=== PATIENT | male | born 1980 | race Two or more races ===

== ENCOUNTER 2024-07-19 19:06 | Emergency (ER) | payer MEDICAID, SELFPAY ==
[2024-07-19 19:07] VITALS: BMI 25.0
[2024-07-19 19:33] VITALS: BP 120/81; PULSE 79; RESP 18; TEMP 37.1; O2SAT 96
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
[2024-07-19] MEDS: KETOROLAC INJ 60 MG/2 ML VIAL 30 MG IM (20:00)
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
[2024-07-19 20:20] LABS: Collection Type, Urine Voided; Squamous Epithelial Cell,Urine 0 /hpf (0-5)
[2024-07-19 20:27] LABS: Bacteria,Urine Rare; Bilirubin,Urine Negative (Negative); Blood,Urine Negative (Negative); Clarity,Urine Clear (Clear/Hazy); Color,Urine Lt-Yellow (Lt Yel-Yel); Glucose, Urine Negative (Negative); Ketones,Urine Negative (Negative); Leukocyte Esterase,Urine Negative (Negative); Nitrite,Urine Negative (Negative); Protein,Urine Trace (Neg - Trace); RBC,Urine 2 /hpf (0-3); Specific Gravity,Urine 1.032 (1.001-1.035); Urobilinogen,Urine Negative mg/dL (0.0-1.0); WBC,Urine 1 /hpf (0-5)
[2024-07-19 21:17] LABS: Basophils # (Auto) 0.1 Thou/mm3 (0.0-0.2); Basophils % (Auto) 1 % (0-2.5); Eosinophils # (Auto) 0.1 Thou/mm3 (0.0-0.5); Eosinophils % (Auto) 2 % (0-10); Hematocrit 42.9 % (41.0-53.0); Hemoglobin 14.8 g/dL (13.5-16.0); Immature Granulocytes % (Auto) 0 % (0-0); Immature Granulocytes Auto 0.02 Thou/mm3 (0.00-0.00); Lymphocytes # (Auto) 2.3 Thou/mm3 (1.0-4.8); Lymphocytes % (Auto) 28 % (10-50); Mean Corpuscular HGB Conc 34.5 g/dl (31.0-37.0); Mean Corpuscular Hemoglobin 29.7 pg (25.0-35.0); Mean Corpuscular Volume 86 fL (80-100); Monocytes # (Auto) 0.7 Thou/mm3 (0.0-0.8); Monocytes % (Auto) 8 % (0-12); Neutrophils % (Auto) 62 % (37-80); Nucleated Red Blood Cell % 0 /100 WBC (0); Platelet Count 267 Thou/mm3 (140-440); RDW Standard Deviation 39.1 fL (35.1-43.9); Red Blood Count 4.99 Miln/mm3 (4.50-5.90); White Blood Count 8.2 Thou/mm3 (3.8-10.6)
[2024-07-19 21:36] LABS: Alanine Aminotransferase 21 U/L (10-49); Albumin, Serum 4.7 gm/dL (3.5-5.0); Albumin/Globulin Ratio 1.7 (1.2-2.2); Alkaline Phosphatase 91 U/L (46-116); Anion Gap 9 (7-16); Aspartate Amino Transferase 22 U/L (0-34); BUN/Creatinine Ratio 23 Ratio (12-20); Bilirubin,Total 0.6 mg/dL (0.3-1.2); Blood Urea Nitrogen 21 mg/dL (9-23); Calcium 9.9 mg/dL (8.3-10.6); Calcium (Corrected) 9.9 mg/dL (8.5-10.1); Carbon Dioxide 25.3 mMol/L (20.0-31.0); Chloride 108 mMol/L (98-107); Creatinine (Component) 0.9 mg/dL (0.6-1.3); Estimated Creatinine Clearance 103.4 mL/min (>60); Globulin 2.7 gm/dL (2.3-3.5); Glucose 92 mg/dL (74-106); Osmolality,Calculated 286 (275-295); Potassium 3.7 mMol/L (3.4-5.1); Sodium 142 mMol/L (136-145); Total Protein 7.4 gm/dL (5.7-8.2); eGFR > 60 See Note
[2024-07-19 21:42] LABS: Partial Thromboplastin Time 27.7 Seconds (22.0-36.0); Prothrombin Time 10.9 Seconds (9.0-12.2)
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
[2024-07-20 02:59] VITALS: BP 117/76; PULSE 57; RESP 16; TEMP 36.9; O2SAT 95
[2024-07-20] MEDS: MORPHINE SULF INJ 10 MG/ML VIAL 4 MG IVP (03:07)
[2024-07-20] MEDS: ONDANSETRON INJ 2 MG/ML INJ 2 ML 4 MG IV (03:07)
[2024-07-20 04:12] VITALS: BP 118/85; PULSE 60; RESP 17; TEMP 36.8; O2SAT 96
[2024-07-20 06:05] VITALS: BP 105/79; PULSE 57; RESP 18; TEMP 36.7; O2SAT 96
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
[2024-07-20 08:42] VITALS: BP 101/79; PULSE 59; RESP 18; TEMP 36.8; O2SAT 96
[2024-07-20 10:23] VITALS: BP 99/73; PULSE 55; RESP 17; TEMP 36.9; O2SAT 96
== END 2024-07-20 12:09 | disposition home or self-care (01) ==
PROVIDERS: Emergency Medicine; Emergency Provider Emergency Medicine; PCP Family Medicine
DX: S19.9XXA Unspecified injury of neck, initial encounter (principal); S29.9XXA Unspecified injury of thorax, initial encounter; M51.370 Other intervertebral disc degeneration, lumbosacral region with discogenic back pain only; M51.27 Other intervertebral disc displacement, lumbosacral region; G95.29 Other cord compression; V89.9XXA Person injured in unspecified vehicle accident, initial encounter
CPT/HCPCS: 36415; 72125; 72128; 72131; 72148; 80053; 81001; 85025; 85610; 85730; 96372; 96374; 96375; 99284; J1885; J2270; J2405

== ENCOUNTER 2025-02-08 16:41 | Emergency (ER) | payer MEDICAID, SELFPAY ==
[2025-02-08 17:35] VITALS: BP 112/72; PULSE 75; RESP 18; TEMP 36.8; O2SAT 95; BMI 23.6
--- NOTE | 2025-02-08 18:24 | XR_ITS ---
EXAMINATION: Ankle, left 3 views . Technique: Ankle AP, oblique, lateral 3 views Date and time of exam: February 06, 2025 1833 hours INDICATIONS: Twisting injury to the ankle today, ankle pain. FINDINGS: No acute fracture. Clinical dislocation No foreign body IMPRESSION: No fracture or dislocation
--- NOTE | 2025-02-08 18:27 | PD.EDANKLE ---
Lower Extremity Injury RME/HPI General Chief Complaint: Ankle/Foot Injury Stated Complaint: Twisted left ankle today Time Seen by Provider: 02/08/25 18:23 Arrival date/time: 02/08/25 16:41 45M with no significant PMH presents to ED with L ankle pain after he twisted it. Limitations: no limitations Related Data Home Medications ?Medication ?Instructions ?Recorded ?Confirmed HYDROCODONE BITARTRATE/APAP 1 tab PO Q4-6HRPRN ##0 11/28/09 (VICODIN 5/500) IBUPROFEN (MOTRIN 600MG TABLET) 1 tab PO [id number] ##0 11/28/09 Previous Rx's ?Medication ?Instructions ?Recorded Hydrocodone/Acetaminophen * (NORCO 1 tab PO TID PRN PAIN #28 tabs 01/09/15 10/325 *) hydrocodone 5 mg-acetaminophen 325 1 tab PO Q6H PRN pain #30 tabs 12/18/24 mg tablet Allergies Allergy/AdvReac Type Severity Reaction Status Date / Time NKA* Allergy Uncoded 02/08/25 16:44 Review of Systems Review of Systems Systems Reviewed: All systems reviewed, normal except as documented Constitutional Constitutional: Reports system reviewed and no additional complaints, except as documented, Denies fever(s) and Denies headache(s) ENT Ears, Nose, Mouth, and Throat: Denies disequilibrium and Denies headache(s) Cardiovascular Cardiovascular: Reports system reviewed and no additional complaints, except as documented, Denies chest pain and Denies dyspnea Respiratory Respiratory: Reports system reviewed and no additional complaints, except as documented, Denies cough and Denies dyspnea Gastrointestinal Gastrointestinal: Reports system reviewed and no additional complaints, except as documented, Denies abdominal pain, Denies nausea and Denies vomiting Musculoskeletal Musculoskeletal: Reports as per HPI and Reports arthralgias Neurologic Neurologic: Reports system reviewed and no additional complaints, except as documented, Denies confusion, Denies disequilibrium and Denies headache(s) Psychiatric Psychiatric: Denies confusion Past Medical History Past Medical History CARDIAC: Negative Congestive Heart Failure RESPIRATORY: Negative Chronic Obstructive Pulmonary Disease (COPD) GENITOURINARY: Negative Renal Disease ENDOCRINE: Negative Diabetes Mellitus Type 1 or Diabetes Mellitus Type 2 Social History SMOKING STATUS: Former smoker SUBSTANCE USE: does not use ED Exam General Limitations: Present no limitations General appearance: Present alert and in no apparent distress Head Head exam: Present atraumatic Eye Eye exam: Present normal appearance, PERRL and EOMI ENT ENT exam: Present normal exam, normal oropharynx and mucous membranes moist Neck Neck exam: Present normal inspection, full ROM and trachea midline Chest Chest inspection: Present normal inspection and symmetric chest wall rise Respiratory Respiratory exam: Present normal lung sounds bilaterally Cardiovascular Cardiovascular exam: Present regular rate, normal rhythm and normal heart sounds Abdominal Exam Abdominal exam: Present soft and normal bowel sounds Extremities Exam Extremities exam: Present full ROM Expanded Lower Extremity Exam Ankle exam: Present full ROM (L) and tenderness Back Exam Back exam: Present normal inspection and full ROM Neurological Exam Neurological exam: Present alert, oriented X3 and CN II-XII intact Psychiatric Psychiatric exam: Present normal affect and normal mood Skin Skin exam: Present warm, dry, intact and normal color Course Quality Measures none Orders Category Date Time Status Crutches .NOW Care 02/08/25 19:33 Active leonie wrap [Splint / Immobilizer] STAT Care 02/08/25 19:33 Active XR ankle comp LT min 3V Stat Exams 02/08/25 18:24 Completed Vital Signs Vital signs: Vital Signs Temperature 98.3 F 02/08/25 17:35 Pulse Rate 75 02/08/25 17:35 Respiratory Rate 18 02/08/25 17:35 Blood Pressure 112/72 02/08/25 17:35 Pulse Oximetry (%) 95 02/08/25 17:35 Oxygen Delivery Method Room Air 02/08/25 17:35 O2 at 95% on RA and WNLs Extremity Injury, Lower MDM Narrative MDM Narrative:: 45M with no significant PMH presents to ED with L ankle pain after he twisted it. Physical exam reveals L ankle tenderness. ROM mostly intact. Patient is afebrile, calm, and alert. XR no fx. Given LEONIE, crutches, and spiritual counselor. Patient data External records reviewed:: [facility] previous records Clinical information provided by:: patient Social determinants that could affect healthcare access:: none Patient has the following chronic illnesses:: none How is presenting disease/condition affected by chronic disease/condition?: no chronic disease Evaluation data The following diagnostics were reviewed and interpreted by me:: radiology exam(s) Lab and/or radiology exams considered but not ordered:: ordered Interpretation Summary: above Medications / Prescriptions Medications or Prescriptions considered but not ordered:: not ordered Medication administrations:: n/a Consultations Consultation(s) initiated? (list below): No Diagnosis Extremity Injury, Lower Differential Diagnosis: ankle sprain and strain, acute internal derangement of knee, puncture wound of foot, fracture of toe and ankle fracture Most likely diagnosis given after review of the tests above:: ankle sprain Admission Indicated Admission indicated?: not indicated Admission Request Was there a request for admission?: No Disposition Plan Disposition Plan: Discharge Discharge Attestation Discharge Attestation: The patient and all family members were given an opportunity to ask questions and understood the discharge instructions. Discharge instructions specifically effects, indications for sooner follow up or return to the emergency department, and the expected course of current diagnosis. Patient condition: Stable Discharge Plan Plan Patient Disposition: HOME (Self Care) Discharge Disposition comment: Stable Prescriptions/Referrals Prescriptions/Med Rec: No Action HYDROCODONE BITARTRATE/APAP (VICODIN 5/500) 1 TAB tablet 1 tab PO Q4-6HRPRN Qty: 0 IBUPROFEN (MOTRIN 600MG TABLET) 600 MG tablet 1 tab PO [id number] Qty: 0 Hydrocodone/Acetaminophen * (NORCO 10/325 *) 1 TAB tablet 1 tab PO TID PRN (Reason: PAIN) Qty: 28 0RF Rx Instructions: FOR PAIN hydrocodone-acetaminophen 5-325 mg tablet 1 tab PO Q6H MDD 8 PRN (Reason: pain) Qty: 30 0RF Referrals: Juice Sanchez MD [Primary Care Provider] - In 1 week Problem List Clinical Impression: Ankle sprain and strain Patient/Caregiver Discharge Instructions Education Materials: ED Ankle Sprain (Adult) Additional Instructions: Please follow-up with PCP within 24-48 hours and return immediately if symptoms worsen. If problem persists, recommend outpatient PT and/or MRI follow-up. In the meantime, rest, use ice/heat, and/or compression. Print Language: Hungarian Stand Alone Forms: Patient Portal Info Letter PA/[place] Supervising Physician SAIMA/[place] Supervising Physician: Dr. Etienne
== END 2025-02-08 20:31 | disposition home or self-care (01) ==
PROVIDERS: Emergency Provider Emergency Medicine; PCP Family Medicine
DX: S93.402A Sprain of unspecified ligament of left ankle, initial encounter (principal); S96.912A Strain of unspecified muscle and tendon at ankle and foot level, left foot, initial encounter; X50.1XXA Overexertion from prolonged static or awkward postures, initial encounter
CPT/HCPCS: 29515; 73610; 99283